=== PATIENT | male | born 1955 | race Caucasian/White ===

== ENCOUNTER 2021-08-15 12:21 | Inpatient (IN) ==
--- NOTE | 2021-08-15 13:14 | Emergency Department Note ---
History of Present Illness General Chief complaint: Syncope Stated complaint: SYNCOPE X 3 W/ FALLS Time Seen by Provider: 08/15/21 12:51 Source: patient Mode of arrival: EMS Limitations: no limitations History of Present Illness Provider complaint: syncope Onset (ago): day(s) Treatments prior to arrival: other This is a 65-year-old male presents emergency department following several syncopal events over the last several days. Patient states he has been doing a bowel prep since Tuesday for colonoscopy yesterday. He states he has passed out several times. He states he was given a liter of fluids following his colonoscopy because he felt weak and dizzy when he stood up. He had another episode of syncope today and present staff gave him another liter of IV fluids. He denies fevers or chills. Believes he did strike his head in the fall. He is unsure how long he was unconscious for. He states he can feel the symptoms coming on as he begins to feel lightheaded, warm, begins to have "fuzziness" of his vision and then feels nauseated and sweaty. Patient states he had episodes of passing out in the 's and was told that one day he may need a pacemaker. He denies any hx of heart problems. Pt seen during a time of high acuity and national emergency pandemic while wearing PPE. 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 Beliefs That Will Affect Care: None Current Living Situation: Other Current Living Situation Comment: detention Feels Safe at Home: Yes Review of Systems A total of 10 systems reviewed and were otherwise negative All systems reviewed & are unremarkable except as noted in HPI & below Physical Exam Vital Signs Vital Signs - 24 hr 08/15/21 12:21 08/15/21 12:31 08/15/21 13:00 Temperature 36.8 C Temperature Source Oral Pulse Rate 92 H 103 H Pulse Rate from SpO2 Sensor 105 H Respiratory Rate 12 20 Blood Pressure 180/105 H 175/119 H Blood Pressure Mean 130 137 Pulse Oximetry 97 98 97 Oxygen Delivery Method Room Air Room Air Sepsis Recent Fever Within 48 Hours No Sepsis New/Unexplained Change in Mental Status No Sepsis Action Taken by Nursing No Action Required 08/15/21 13:39 Temperature Temperature Source Pulse Rate 86 Pulse Rate from SpO2 Sensor 83 Respiratory Rate 16 Blood Pressure 147/84 H Blood Pressure Mean 105 Pulse Oximetry 98 Oxygen Delivery Method Sepsis Recent Fever Within 48 Hours Sepsis New/Unexplained Change in Mental Status Sepsis Action Taken by Nursing GENERAL: alert, well appearing, well nourished, no distress, non-toxic HEAD: contusion noted left side of face/head EYE EXAM: normal conjunctiva, PERRL and EOM's grossly intact, no nystagmus OROPHARYNX: no exudate, no erythema, lips, buccal mucosa, and tongue normal and mucous membranes are moist NECK: supple, no nuchal rigidity, no adenopathy, non-tender LUNGS: Clear to auscultation. Normal chest wall mechanics, no w/r/r HEART: no murmurs, S1 normal and S2 normal ABDOMEN: abdomen soft, non-tender, normo-active bowel sounds, no masses, no rebound or guarding. BACK: Back is symmetrical on inspection and there is no deformity, no midline tenderness, no CVA tenderness. SKIN: no rashes and no bruising UPPER EXTREMITIES: upper extremities are grossly normal. FROM, nml pulses b/l. LOWER EXTREMITIES: No pitting edema. FROM, nml pulses b/l. NEURO EXAM: Normal sensorium, cranial nerves II-XII grossly intact, normal speech, no gross weakness of arms, no gross weakness of legs. Gross sensation intact. Course Administered Medications Acetaminophen (Acetaminophen 325 Mg Tab) 650 mg PO Q4H PRN PRN Reason: Pain or Fever Stop: 09/14/21 17:54 Last Admin: 08/16/21 00:37 Dose: 650 mg Documented by: [id number] Apixaban (Apixaban 2.5 Mg Tab) 5 mg PO Q12H MCKAYLA Stop: 09/15/21 15:14 Last Admin: 08/16/21 16:22 Dose: 5 mg Documented by: [id number] Aspirin (Aspirin 81 Mg Ectab) 81 mg PO DAILY MCKAYLA Stop: 09/15/21 08:59 Last Admin: 08/16/21 07:52 Dose: 81 mg Documented by: [id number] Ceftriaxone Sodium 2,000 mg/ (Dextrose) 70 mls @ 100 mls/hr IV Q24H MCKAYLA; Protocol Stop: 08/25/21 17:59 Last Infusion: 08/16/21 18:35 Dose: 0 mls/hr Documented by: [id number] Admin: 08/16/21 17:31 Dose: 100 mls/hr Documented by: [id number] Infusion: 08/15/21 19:16 Dose: 0 mls/hr Documented by: [id number] Admin: 08/15/21 18:31 Dose: 100 mls/hr Documented by: [id number] Famotidine 20 mg/ Syringe 5 mls @ 2.5 mls/min IV BID MCKAYLA Stop: 09/15/21 08:59 Last Admin: 08/16/21 10:00 Dose: 2.5 mls/min Documented by: [id number] Lisinopril (Lisinopril 10 Mg Tab) 10 mg PO QAM MCKAYLA Stop: 09/15/21 08:59 Last Admin: 08/16/21 10:00 Dose: 10 mg Documented by: [id number] Pravastatin Sodium (Pravastatin Sod 40 Mg Tab) 80 mg PO HS [facility] Stop: 09/14/21 20:59 Last Admin: 08/15/21 20:59 Dose: 80 mg Documented by: [id number] Discontinued Medications Heparin Sodium (Porcine) (Heparin Sod 5,000 Unit/0.5 Ml Vial) 5,000 units SQ Q12 MCKAYLA Stop: 09/14/21 20:59 Last Admin: 08/16/21 07:50 Dose: 5,000 units Documented by: [id number] Admin: 08/15/21 20:59 Dose: 5,000 units Documented by: [id number] Sodium Chloride (Nss 1000ml) 1,000 mls @ 999 mls/hr IV .Q1H1M ONE Stop: 08/15/21 14:19 Last Infusion: 08/15/21 15:29 Dose: 0 mls/hr Documented by: [id number] Admin: 08/15/21 13:30 Dose: 999 mls/hr Documented by: [id number] Doxycycline Hyclate 100 mg/ (Dextrose) 110 mls @ 50 mls/hr IV NOW STA Stop: 08/15/21 17:15 Last Infusion: 08/15/21 17:41 Dose: 0 mls/hr Documented by: [id number] Admin: 08/15/21 15:29 Dose: 50 mls/hr Documented by: [id number] Lactated Ringer's (Lr) 1,000 mls @ 125 mls/hr IV .Q8H MCKAYLA Stop: 08/16/21 09:54 Last Infusion: 08/16/21 10:43 Dose: 0 mls/hr Documented by: [id number] Admin: 08/16/21 02:23 Dose: 125 mls/hr Documented by: [id number] Infusion: 08/16/21 02:23 Dose: 0 mls/hr Documented by: [id number] Admin: 08/15/21 18:30 Dose: 125 mls/hr Documented by: [id number] Ioversol (Optiray 320 125ml) 90 ml IV ONCE ONE Stop: 08/15/21 14:46 Last Admin: 08/15/21 14:45 Dose: 90 ml Documented by: [id number] Medical Decision Making Differential Diagnosis Differential diagnosis includes etiologies such as vasovagal event, infection, hypoglycemia, electrolyte abnormalities, cardiac sources, intracerebral event, toxicologic, neurologic, as well as others were entertained. Medical Records Attestation: I reviewed the patient's medical records. Home Medications Current Medication List: was personally reviewed by me Laboratory Data Attestation: I reviewed the patient's lab results. Result diagrams: 08/16/21 06:55 08/16/21 06:55 Lab Results 08/15/21 08/15/21 08/15/21 Range/Units 12:38 12:38 12:38 WBC 6.26 (4.8-10.8) K/uL RBC 4.64 L (4.7-6.1) M/uL Hgb 14.3 (14.0-18.0) g/dL Hct 42.5 (42-52) % MCV 91.6 (80-100) fL MCH 30.8 (25-34) pg MCHC 33.6 (32-36) g/dL RDW Std Deviation 45.2 (36.4-46.3) fL RDW Coeff of Kristyn 13.7 (11.5-14.5) % Plt Count 181 (130-400) K/uL MPV 10.8 H (7.4-10.4) fL Immature Gran % (Auto) 0.2 % Neut % (Auto) 74.3 % Lymph % (Auto) 16.9 % Kaufman % (Auto) 7.8 % Eos % (Auto) 0.6 % Baso % (Auto) 0.2 % Neut # (Auto) 4.65 (1.4-6.5) K/uL Lymph # (Auto) 1.06 L (1.2-3.4) K/uL Kaufman # (Auto) 0.49 (0.11-0.59) K/uL Eos # (Auto) 0.04 (0-0.5) K/uL Baso # (Auto) 0.01 (0-0.2) K/uL Immature Gran # (Auto) 0.01 (0.00-0.02) K/uL ESR (0-20) mm/hr D-Dimer 7800 H* (0-500) ug/L FEU Sodium 139 (136-145) mmol/L Potassium 3.7 (3.5-5.1) mmol/L Chloride 104 (98-107) mmol/L Carbon Dioxide 25 (21-32) mmol/L Anion Gap 10 (3-11) BUN 31 H (6-23) mg/dl Creatinine 1.49 H (0.6-1.4) mg/dl Est Cr Clr Drug Dosing 61.0 ml/min Est GFR ( Amer) 56.7 ml/min Est GFR (Non-Af Amer) 48.9 ml/min BUN/Creatinine Ratio 20.8 H (10-20) Glucose 98 (70-99(Fasting)) mg/dl Calcium 9.5 (8.5-10.1) mg/dl Magnesium 2.1 (1.7-2.4) mg/dl Total Bilirubin 0.5 (0.2-1.0) mg/dl AST 24 (13-39) U/L ALT 24 (7-52) U/L Alkaline Phosphatase 89 (34-104) U/L Troponin I High Sens 35.9 H (0-20) pg/ml C-Reactive Protein (0-0.5) mg/dl Total Protein 7.6 (6.0-8.3) gm/dl Albumin 4.5 (3.4-5.0) gm/dl Globulin 3.1 (2.5-4.0) gm/dl Albumin/Globulin Ratio 1.5 (0.9-2) Lipase 139 H (11-82) U/L TSH (0.300-4.500) uIu/ml Lyme Disease IgG Ab (Negative) Lyme Disease IgM Ab (Negative) 08/15/21 08/15/21 08/15/21 Range/Units 12:38 12:38 12:38 WBC (4.8-10.8) K/uL RBC (4.7-6.1) M/uL Hgb (14.0-18.0) g/dL Hct (42-52) % MCV (80-100) fL MCH (25-34) pg MCHC (32-36) g/dL RDW Std Deviation (36.4-46.3) fL RDW Coeff of Kristyn (11.5-14.5) % Plt Count (130-400) K/uL MPV (7.4-10.4) fL Immature Gran % (Auto) % Neut % (Auto) % Lymph % (Auto) % Kaufman % (Auto) % Eos % (Auto) % Baso % (Auto) % Neut # (Auto) (1.4-6.5) K/uL Lymph # (Auto) (1.2-3.4) K/uL Kaufman # (Auto) (0.11-0.59) K/uL Eos # (Auto) (0-0.5) K/uL Baso # (Auto) (0-0.2) K/uL Immature Gran # (Auto) (0.00-0.02) K/uL ESR (0-20) mm/hr D-Dimer (0-500) ug/L FEU Sodium (136-145) mmol/L Potassium (3.5-5.1) mmol/L Chloride (98-107) mmol/L Carbon Dioxide (21-32) mmol/L Anion Gap (3-11) BUN (6-23) mg/dl Creatinine (0.6-1.4) mg/dl Est Cr Clr Drug Dosing ml/min Est GFR ( Amer) ml/min Est GFR (Non-Af Amer) ml/min BUN/Creatinine Ratio (10-20) Glucose (70-99(Fasting)) mg/dl Calcium (8.5-10.1) mg/dl Magnesium (1.7-2.4) mg/dl Total Bilirubin (0.2-1.0) mg/dl AST (13-39) U/L ALT (7-52) U/L Alkaline Phosphatase (34-104) U/L Troponin I High Sens (0-20) pg/ml C-Reactive Protein < 0.50 (0-0.5) mg/dl Total Protein (6.0-8.3) gm/dl Albumin (3.4-5.0) gm/dl Globulin (2.5-4.0) gm/dl Albumin/Globulin Ratio (0.9-2) Lipase (11-82) U/L TSH 0.409 (0.300-4.500) uIu/ml Lyme Disease IgG Ab Negative (Negative) Lyme Disease IgM Ab Positive A (Negative) 08/15/21 Range/Units 12:38 WBC (4.8-10.8) K/uL RBC (4.7-6.1) M/uL Hgb (14.0-18.0) g/dL Hct (42-52) % MCV (80-100) fL MCH (25-34) pg MCHC (32-36) g/dL RDW Std Deviation (36.4-46.3) fL RDW Coeff of Kristyn (11.5-14.5) % Plt Count (130-400) K/uL MPV (7.4-10.4) fL Immature Gran % (Auto) % Neut % (Auto) % Lymph % (Auto) % Kaufman % (Auto) % Eos % (Auto) % Baso % (Auto) % Neut # (Auto) (1.4-6.5) K/uL Lymph # (Auto) (1.2-3.4) K/uL Kaufman # (Auto) (0.11-0.59) K/uL Eos # (Auto) (0-0.5) K/uL Baso # (Auto) (0-0.2) K/uL Immature Gran # (Auto) (0.00-0.02) K/uL ESR 29 H (0-20) mm/hr D-Dimer (0-500) ug/L FEU Sodium (136-145) mmol/L Potassium (3.5-5.1) mmol/L Chloride (98-107) mmol/L Carbon Dioxide (21-32) mmol/L Anion Gap (3-11) BUN (6-23) mg/dl Creatinine (0.6-1.4) mg/dl Est Cr Clr Drug Dosing ml/min Est GFR ( Amer) ml/min Est GFR (Non-Af Amer) ml/min BUN/Creatinine Ratio (10-20) Glucose (70-99(Fasting)) mg/dl Calcium (8.5-10.1) mg/dl Magnesium (1.7-2.4) mg/dl Total Bilirubin (0.2-1.0) mg/dl AST (13-39) U/L ALT (7-52) U/L Alkaline Phosphatase (34-104) U/L Troponin I High Sens (0-20) pg/ml C-Reactive Protein (0-0.5) mg/dl Total Protein (6.0-8.3) gm/dl Albumin (3.4-5.0) gm/dl Globulin (2.5-4.0) gm/dl Albumin/Globulin Ratio (0.9-2) Lipase (11-82) U/L TSH (0.300-4.500) uIu/ml Lyme Disease IgG Ab (Negative) Lyme Disease IgM Ab (Negative) Imaging Data Radiologist's Impression: Chest X-Ray 08/15/21 13:19 XR chest 1V portable CLINICAL HISTORY: syncope TECHNIQUE: Single frontal radiograph of the chest was obtained. Comparison: None available at the time of this dictation. FINDINGS: No lines and tubes are seen. The cardiomediastinal silhouette is normal. The lungs are clear. No evidence of pleural effusion or pneumothorax. IMPRESSION: No acute chest disease. ACT 112: Negative or not required by law. Electronically signed by: Reagan Iverson M.D. 08/15/2021 1:[address] 08/15/21 13:19 CT head/brain wo con CLINICAL HISTORY: trauma, syncope Technique: Contiguous axial CT images of the head were acquired from the base of the skull to the vertex without intravenous contrast administration. Images were viewed in brain, subdural and bone windows. Automated dose lowering techniques and/or adjustment according to patient size were utilized for this exam. Comparison: None available at the time of this dictation. Findings: The ventricles, basal cisterns, and cerebral sulci are normal. There is no acute intracranial hemorrhage or evidence of acute territorial infarction. Neither mass effect, shift of the midline structures, nor abnormal extra-axial fluid collections are shown. Imaged portions of the paranasal sinuses and mastoid air cells are clear. The orbits appear normal. There are no acute fractures of the calvaria or scalp swelling. Impression: No acute intracranial hemorrhage, no evidence of acute territorial infarction or other acute intracranial disease process. ACT 112: Negative or not required by law. Electronically signed by: Reagan Iverson M.D. 08/15/2021 2:12 PM Chest CTA 08/15/21 14:15 CT angio chest PE protocol CLINICAL HISTORY: PE TECHNIQUE: Multidetector row helical CT of the chest was performed with angiographic protocol. Coronal and sagittal reformations were obtained. Coronal and sagittal MIPS were obtained from the axial data set and were submitted for review. Automated dose lowering techniques and/or adjustment according to patient size were utilized for this exam. CT DOSE: 538.22 mGy.cm Comparison: Comparison is made to chest radiograph 08/15/2021 FINDINGS: Lungs and pleura: Normal. Heart and pericardium: There is cardiomegaly without evidence of pericardial effusion. Vessels: No evidence of pulmonary embolism. Mediastinum and lucila: Unremarkable. Chest wall and lower neck: Unremarkable. Abdomen: Unremarkable. Bones: Minimal degenerative changes are seen. IMPRESSION: No evidence of pulmonary embolism. ACT 112: Negative or not required by law. Electronically signed by: Reagan Iverson M.D. 08/15/2021 2:57 PM ECG Data Attestation: I personally reviewed and interpreted this ECG as follows: Indication: + syncope Rate (beats per minute): 99 Rhythm: + normal sinus ECG Intervals/blocks: + Left bundle branch block and + Normal QT ECG [place]: + Normal ECG ST segments: + Nonspecific ST abnormalities MDM Narrative An order was placed for continuous cardiac monitoring. The monitor shows a rate of _74_ with _normal sinus_ rhythm. This is a 65-year-old male who presents due to concern for recurrent episodes of syncope. Patient had been given IV fluids as initial thought by presumed primary was that he was volume depleted due to recent prep for colonoscopy which he underwent yesterday. Patient had recurrent syncope again today. Patient found to have a left bundle branch block on EKG, denies any prior history of abnormal EKG. Patient was also found to have elevated D-dimer and was sent for CT angiography of the chest which was reassuring. Patient with mildly elevated troponin. However during my evaluation no complaints of chest pain or shortness of breath. 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 Patient made hemodynamically stable throughout, no other ectopy or dysrhythmia noted on telemetry. I do not suspect additional occult traumatic injury related to syncope. Impression & Plan Syncope, LBBB (left bundle branch block), Lyme disease, CHI (closed head injury), Lyme carditis Discharge Plan Visit Data Chief Complaint: Syncope Stated Complaint: SYNCOPE X 3 W/ FALLS ED Provider: Sheree Waddell Discharge Problem: Syncope, LBBB (left bundle branch block), Lyme disease, CHI (closed head injury), Lyme carditis Patient Disposition: Admitted As Inpatient Discharge Instructions Interventions: ED Discharge Assessment Last Done: 08/15/21 17:04 Discharge Problem: Syncope Qualifiers: Syncope type: unspecified Qualified Code(s): R55 - Syncope and collapse CHI (closed head injury) Qualifiers: Encounter type: initial encounter Qualified Code(s): S09.90XA - Unspecified injury of head, initial encounter
[2021-08-15] MEDS ORDERED: SODIUM CHLORIDE 0.9% 1000ML 1,000 ML IV ONE (13:19)
[2021-08-15 13:50] LABS: Basophils # (auto) 0.01 K/uL (0-0.2); Basophils % (auto) 0.2 %; Eosinophils # (auto) 0.04 K/uL (0-0.5); Eosinophils % (auto) 0.6 %; Hematocrit (blood only) 42.5 % (42-52); Hemoglobin 14.3 g/dL (14.0-18.0); Immature Granulocytes # (auto) 0.01 K/uL (0.00-0.02); Immature Granulocytes % (auto) 0.2 %; Lymphocytes # (auto) 1.06 K/uL (1.2-3.4); Lymphocytes % (auto) 16.9 %; Mean Corpuscular Hemoglobin 30.8 pg (25-34); Mean Corpuscular Hgb Conc 33.6 g/dL (32-36); Mean Corpuscular Volume 91.6 fL (80-100); Mean Platelet Volume 10.8 fL (7.4-10.4); Monocytes # (auto) 0.49 K/uL (0.11-0.59); Monocytes % (auto) 7.8 %; Neutrophils # (auto) 4.65 K/uL (1.4-6.5); Neutrophils % (auto) 74.3 %; Platelet Count 181 K/uL (130-400); RDW Coefficient of Variation 13.7 % (11.5-14.5); RDW Standard Deviation 45.2 fL (36.4-46.3); Red Blood Count 4.64 M/uL (4.7-6.1); White Blood Count 6.26 K/uL (4.8-10.8)
--- NOTE | 2021-08-15 13:50 | XRay Report ---
XR chest 1V portable CLINICAL HISTORY: syncope TECHNIQUE: Single frontal radiograph of the chest was obtained. Comparison: None available at the time of this dictation. FINDINGS: No lines and tubes are seen. The cardiomediastinal silhouette is normal. The lungs are clear. No evid ence of pleural effusion or pneumothorax. IMPRESSION: No acute chest disease. ACT 112: Negative or not required by law. Electronically signed by: Reagan Iverson M.D. 08/15/2021 1:49 PM
[2021-08-15 13:56] LABS: Potassium 3.7 mmol/L (3.5-5.1); Troponin I High Sensitivity 35.9 pg/ml (0-20)
[2021-08-15 13:57] LABS: Albumin Globulin Ratio 1.5 (0.9-2); Albumin Level 4.5 gm/dl (3.4-5.0); BUN Creatinine Ratio 20.8 (10-20); Bilirubin,Total 0.5 mg/dl (0.2-1.0); Calcium 9.5 mg/dl (8.5-10.1); Est GFR (African American) 56.7 ml/min; Est GFR (Non-African American) 48.9 ml/min; Globulin 3.1 gm/dl (2.5-4.0); Magnesium 2.1 mg/dl (1.7-2.4); Total Protein 7.6 gm/dl (6.0-8.3)
[2021-08-15 14:11] LABS: D Dimer 7800 ug/L FEU (0-500)
--- NOTE | 2021-08-15 14:13 | CT Scan Report ---
CT head/brain wo con CLINICAL HISTORY: trauma, syncope Technique: Contiguous axial CT images of the head were acquired from the base of the skull to the susy nia without intravenous contrast administration. Images were viewed in brain, subdural and bone [facility]. Automated dose lowering techniques and/or adjustment according to patient size were utilized for this exam. Comparison: None available at the time of this dictation. Findings: The ventricles, basal cisterns, and cerebral sulci are normal. There is no acute intracranial hemorrh age or evidence of acute territorial infarction. Neither mass effect, shift of the midline structures , nor abnormal extra-axial fluid collections are shown. Imaged portions of the paranasal sinuses and mastoid air cells are clear. The orbits appear normal. There are no acute fractures of the calvaria or scalp swelling. Impression: No acute intracranial hemorrhage, no evidence of acute territorial infarction or other acute intracra nial disease process. ACT 112: Negative or not required by law. Electronically signed by: Reagan Iverson M.D. 08/15/2021 2:12 PM
[2021-08-15 14:30] LABS: Lyme Ab IgG w/WB Rflx Negative (Negative)
[2021-08-15 14:37] LABS: Lyme Ab IgM w/WB Rflx Positive (Negative)
[2021-08-15] MEDS ORDERED: OPTIRAY 320 125ml IV ONE (14:45)
--- NOTE | 2021-08-15 14:58 | CT Scan Report ---
CT angio chest PE protocol CLINICAL HISTORY: PE TECHNIQUE: Multidetector row helical CT of the chest was performed with angiographic protocol. Gutierrez l and sagittal reformations were obtained. Coronal and sagittal MIPS were obtained from the axial francois a set and were submitted for review. Automated dose lowering techniques and/or adjustment according to patient size were utilized for this exam. CT DOSE: 538.22 mGy.cm Comparison: Comparison is made to chest radiograph 08/15/2021 FINDINGS: Lungs and pleura: Normal. Heart and pericardium: There is cardiomegaly without evidence of pericardial effusion. Vessels: No evidence of pulmonary embolism. Mediastinum and lucila: Unremarkable. Chest wall and lower neck: Unremarkable. Abdomen: Unremarkable. Bones: Minimal degenerative changes are seen. IMPRESSION: No evidence of pulmonary embolism. ACT 112: Negative or not required by law. Electronically signed by: Reagan Iverson M.D. 08/15/2021 2:57 PM
[2021-08-15] MEDS ORDERED: DOXYCYCLINE HYCLATE 100 MG in DEXTROSE 5% 100 ML IV STA (15:04)
--- NOTE | 2021-08-15 16:03 | History & Physical Report ---
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 Syncope and Bradycardia, suspect secondary to AV block from Lyme Carditis -Lyme IgM positive, IgG bands pending -EKG taken during second syncope episode notable for HR 33BPM in addition to signs concerning for progression towards 3rd degree heart block -Treated with IV Doxycycline in the ED -Will transition to IV Ceftriaxone 2g QD until MI <300ms and no further AV blocks are noted while on monitored unit -After stability is ensured, transition to PO Doxycycline 100mg BID x14-21 days -If block returns or worsens, consider Cardiology consult for temporary PM JOHNATHAN -Mild elevation of creatinine 1.49 -Suspect secondary to recent bowel prep -Will hold Lisinopril at this time -LR 125ml/hr x2L -Recheck BMP in AM Elevated Troponin -High sensitivity troponin elevated at 35.9 on admission -New LBBB on EKG per our records, however, without hallmark signs of ACS including chest pain/pressure/SOB -HEART score 6 with 12-16.6% risk for adverse cardiac event -Suspect secondary to lyme carditis -Will trend q6h -Echo ordered Elevated D-Dimer -D-Dimer 7800 -Suspect secondary to lyme carditis -Chest CTA negative -With L calf pain will check doppler as well L calf Pain -In setting of elevated D-Dimer -Will check US doppler for clot HLD -Continue pravastatin -Continua ASA HTN -Hold Lisinopril as above Dispo: PCU for close cardiac monitoring and IV anbiotics, possible need for transcutaneous pacing FEN: Heart healthy diet DVT: Heparin sq Code: Full History of Present Illness Chief Complaint: Lyme Carditis Primary Care Provider: LINDA Lynne Patient is a 65 year old male with PMHx HLD and HTN that presents with history of falls x3 in the past 24 hours with EKG findings 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 Patient notes that yesterday morning while showering he had felt that he was "about to pass out" and had noticed "white and black flashes" in his vision before waking up on the floor. He notes he had been completing prep for a colonoscopy the night prior and was thought to be dehydrated. He was given 1L of IVF and underwent his colonoscopy without issues. He notes that this morning around 8AM he had again felt similar symptoms of wanting to pass out and ended up falling and again and hit the L side of his head. EKG at that time was notable for bradycardia of 33bpm in addition to AV dissociation concerning for 3rd degree AV block. He had similar symptoms again around 10AM this morning and again passed out while laying flat. 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 He notes that he feels well currently and denies any fever, nausea, vomiting, SOB, chest pain, chest pressure, abdominal pain, rash. He does note that in the past 24 hours he has had some chills in addition to some distal L calf pain which he though was due to dehydration from the colonoscopy prep. He does not recall any recent tick bites and notes that his primary time outdoors was spent 3 weeks ago in the small yard. Med Hx: HTN, HLD Surg Hx: Cholecysectomy Soc Hx: No alcohol or illicit drug use. Smoked 1-2.5PPD x45 years, quit 3 years ago Fam Hx: Father with planned coronary artery stent placements, Grandfather with CAD Allergies Allergy/AdvReac Type Severity Reaction Status Date / Time Penicillins Allergy Unknown Unverified 08/15/21 15:51 Home Medications Medication Instructions Recorded Confirmed Type aspirin 81 mg tablet,delayed 81 mg PO DAILY 08/15/21 08/15/21 History release lisinopril 10 mg tablet 10 mg PO DAILY 08/15/21 08/15/21 History pravastatin 80 mg tablet 80 mg PO HS 08/15/21 08/15/21 History Past Med/Surg History Social History Smoking Status: Former smoker Tobacco Type: Cigarettes Preferred Language: Dominican Feels Safe at Home: Yes Review of Systems Review of Systems: All systems reviewed & are unremarkable except as noted in Subjective Physical Exam Constitutional: well developed and well nourished; no acute distress Eyes: PERRL, conjunctivae normal, anicteric sclerae ENMT: external ear and nose normal, oropharynx normal Neck: trachea midline, no thyromegaly Respiratory: normal respiratory effort, lungs clear to auscultation Cardiovascular: Rate/Rhythm: regular rate and regular rhythm Heart Sounds: no murmur Extremities: + calf tenderness (L distal calf ); no edema Gastrointestinal (Abdomen): normal bowel sounds, soft, nontender, no hepatosplenomegaly Musculoskeletal: Head/Neck/Chest: + head abnormal to inspection (Bruising noted on the upper L lateral face and forehead ) Skin: no rashes, warm and dry Results & Data Results & Data ([facility]) Vital Signs (Past 12 Hours) Vital Signs Temp Pulse Resp BP Pulse Ox 08/15/21 15:00 82 16 134/77 96 08/15/21 14:27 76 18 135/81 96 08/15/21 13:39 86 16 147/84 H 98 08/15/21 13:00 103 H 20 175/119 H 97 08/15/21 12:31 98 08/15/21 12:21 36.8 C 92 H 12 180/105 H 97 Supervising Physician Co-Signing Physician Notes I personally examined the patient and verified all busch points of history and exam, discussed case, and agree with decision making with Dr Tanner. Multiple syncopal episodesunderstandably at first thought it was related to dehydration from bowel prep for colonoscopy, but even happened after fluid boluses and after colonoscopy was complete and fluid boluses were given then. Found to have complete heart block. Vitals noted, in general he is awake and alert pleasant no distress. HEENT normocephalic atraumatic mucous membranes moist. Breathing unlabored no accessory muscle use good effort. Skin shows no rashes no pallor or icterus. Neuro without focal deficits. [facility] shows complete heart block with bradycardia, other EKGs are more in line with sinus with a left bundle Complete heart block/syncopeLyme IgM positivehopefully this is simply Lyme carditis. The fact that he is bouncing back and forth between complete heart block and left bundle is a bit concerning, as is his astronomical pack yearstrue conduction disease is possible. For now, keep on monitor, can utilize transcutaneous pacing or transvenous if needed, but he appears quite stable now. Treat Lyme with ceftriaxoneif rhythms resolve and totally go away, particularly if IgM bands are consistent with screening testthen likely this will have been Lyme carditis all along. If rhythms continue to come and go with this regard to treatment, if bands are negative, etc.then more concerning for a primary conduction disease. Elevated creatinineunknown baseline, but assume JOHNATHAN related to dehydration from bowel prep and poor forward flow from complete heart block DVT prophylaxisheparin subcu Otherwise as above Resident Activity Tracking Resident Involvement: Resident Care Provided Care Provided: Adult Hospital Medicine
[2021-08-15 16:25] LABS: Influenza A virus by PCR Negative (Neg); Influenza B virus by PCR Negative (Neg); RSV by PCR Negative (Neg); SARS CoV2 RNA(COVID-19) InHosp NEGATIVE (Negative)
--- NOTE | 2021-08-15 17:05 | Ultrasound Report ---
US venous doppler LE BI CLINICAL HISTORY: elevated ddjazmine, L calf pain TECHNIQUE: Bilateral lower extremity real-time compression venous ultrasound with Color Doppler imagi ng. Utilizing real-time ultrasonic imaging multiple real time high-resolution ultrasonic images with compression and noncompression maneuvers of the deep venous system in addition to color doppler imagi ng were performed from the common femoral vein through the proximal calf veins. COMPARISON: None available at the time of this dictation. FINDINGS: No DVT is seen in the right. There is a thrombus seen in the mid to distal peroneal vein in the left lower extremity. Impression: Left peroneal deep venous thrombus. No additional thrombus is seen. ACT 112: Negative or not required by law. Electronically signed by: Reagan Iverson M.D. 08/15/2021 5:04 PM
--- NOTE | 2021-08-15 17:23 | Billing Data ---
Date of Service August 15, 2021 Coding Level of Care Code 82474 Initial Inpt Care Lvl 3
[2021-08-15] MEDS: LACTATED RINGER'S 1,000 ML IV SCH (18:30)
[2021-08-15] MEDS: cefTRIAXone SODIUM 2,000 MG in DEXTROSE 5% 50 ML IV SCH (18:31)
[2021-08-15] MEDS: HEPARIN SOD 5,000 UNIT/0.5 ML VIAL SQ SCH (20:59)
[2021-08-15] MEDS: PRAVASTATIN SOD 40 MG TAB PO SCH (20:59)
[2021-08-16] MEDS: ACETAMINOPHEN 325 MG TAB PO PRN ×2 (00:37→21:02)
[2021-08-16] MEDS: LACTATED RINGER'S 1,000 ML IV SCH (02:23)
[2021-08-16 07:20] LABS: Basophils # (auto) 0.02 K/uL (0-0.2); Basophils % (auto) 0.5 %; Eosinophils # (auto) 0.15 K/uL (0-0.5); Eosinophils % (auto) 3.5 %; Hematocrit (blood only) 38.6 % (42-52); Hemoglobin 12.7 g/dL (14.0-18.0); Immature Granulocytes # (auto) 0.01 K/uL (0.00-0.02); Immature Granulocytes % (auto) 0.2 %; Lymphocytes # (auto) 1.41 K/uL (1.2-3.4); Lymphocytes % (auto) 32.8 %; Mean Corpuscular Hemoglobin 30.4 pg (25-34); Mean Corpuscular Hgb Conc 32.9 g/dL (32-36); Mean Corpuscular Volume 92.3 fL (80-100); Mean Platelet Volume 10.4 fL (7.4-10.4); Monocytes # (auto) 0.43 K/uL (0.11-0.59); Neutrophils # (auto) 2.28 K/uL (1.4-6.5); Platelet Count 132 K/uL (130-400); RDW Coefficient of Variation 13.7 % (11.5-14.5); RDW Standard Deviation 46.1 fL (36.4-46.3); Red Blood Count 4.18 M/uL (4.7-6.1)
--- NOTE | 2021-08-16 07:35 | Hospitalist Progress Note ---
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 Syncope and Bradycardia, suspect secondary to AV block from Lyme Carditis vs Conduction delay -Lyme IgM positive, IgG bands pending -EKG taken during second syncope episode notable for HR 33BPM in addition to signs concerning for progression towards 3rd degree heart block -Treated with IV Doxycycline in the ED -Will transition to IV Ceftriaxone 2g QD until HI <300ms and no further AV blocks are noted while on monitored unit -After stability is ensured, transition to PO Doxycycline 100mg BID x14-21 days -If block returns or worsens, consider Cardiology consult for temporary PM -Patient would likely benefit from outpatient event monitor as well upon discharge DVT of the L distal Peroneal Vein -D-Dimer elevated 7800 on admission -Chest CTA negative -Doppler positive for DVT of L distal peroneal vein -Will start Eliquis 5mg BID JOHNATHAN -Mild elevation of creatinine 1.49 on admission -Suspect secondary to recent bowel prep -LR 125ml/hr x2L given -Resolved and at baseline Elevated Troponin -High sensitivity troponin elevated at 35.9 on admission -New LBBB on EKG per our records, however, without hallmark signs of ACS including chest pain/pressure/SOB -HEART score 6 with 12-16.6% risk for adverse cardiac event -Suspect secondary to lyme carditis -Will trend q6h -- Troponin level has since downtrended -Echo ordered -- EF 50-55% without regional wall motion abnormalities. Mild concentric left ventricular hypertrophy. HLD -Continue pravastatin -Continua ASA HTN -Restart Lisinopril Dispo: PCU for close cardiac monitoring and IV anbiotics, possible need for transcutaneous pacing FEN: Heart healthy diet DVT: Heparin sq Code: Full Admission and Anticipated Discharge Date Admission Date: August 15, 2021 Supervising Physician Co-Signing Physician Notes I personally examined the patient and verified all busch points of history and exam, discussed case, and agree with decision making with Dr Tanner. Feeling okay today. Relates that over the last few years he is actually now had 3 different discrete times where he has had syncopal episodes. Vitals noted, in general he is awake and alert pleasant no distress. HEENT normocephalic atraumatic mucous membranes moist. Breathing unlabored no accessory muscle use good effort. Skin shows no rashes no pallor or icterus. Neuro without focal deficits. Complete heart block/syncopeLyme IgM positivehopefully this is simply Lyme carditis. That said, he has been in sinus with a left bundle branch block since admission, and my experience with Lyme carditis has generally been that the conduction problems improve slowly rather than bouncing back and forthand he was back in sinus with a left bundle before he was even started on antibiotics to the best of my knowledge. This, combined with his previous episodes of otherwise unexplained syncope are fairly concerning that he has truly guid[place]le conduction system disease. In the acute setting it might be impossible to tease this apart from Lyme carditisparticularly given that we are in an endemic area and he has a positive IgMbut if his bands come back negative/nondiagnostic then it would be far more concerning that he truly just has conduction disease and the Lyme screen was a false positive. Even if the Lyme is positive, definitely we would be obligated to treat as though this is Lyme carditis, but the suspicion would remain that he has baseline conduction diseaseinto that and really should probably have more prolonged cardiac monitoring as an outpatient Elevated creatinineunknown baseline, but assume JOHNATHAN related to dehydration from bowel prep and poor forward flow from complete heart blockimproved DVT prophylaxisheparin subcu Otherwise as above Subjective Patient evaluated at the bedside this AM. Notes that his only concern is that occasionally food will feel "stuck" in his chest whenever he goes to swallow. Denies history of GERD or reflux symptoms otherwise. Denies fever, chills, SOB, chest pain. Review of Systems Review of Systems: All systems reviewed & are unremarkable except as noted in Subjective Physical Exam Constitutional: well developed and well nourished; no acute distress Eyes: PERRL, conjunctivae normal, anicteric sclerae ENMT: external ear and nose normal, oropharynx normal Neck: trachea midline, no thyromegaly Respiratory: normal respiratory effort, lungs clear to auscultation Cardiovascular: Rate/Rhythm: regular rate and regular rhythm Heart Sounds: no murmur Extremities: + calf tenderness (L distal calf ); no edema Gastrointestinal (Abdomen): normal bowel sounds, soft, nontender, no hepatosplenomegaly Musculoskeletal: Head/Neck/Chest: + head abnormal to inspection (Bruising noted on the upper L lateral face and forehead ) Skin: no rashes, warm and dry Results & Data Results & Data ([facility]) Vital Signs (Past 12 Hours) Vital Signs Temp Pulse Resp BP Pulse Ox 08/16/21 03:30 36.6 C 74 18 149/86 H 96 08/15/21 23:20 36.7 C 72 18 135/85 95 Resident Activity Tracking Resident Involvement: Resident Care Provided Care Provided: Adult Hospital Medicine
[2021-08-16 07:45] LABS: BUN Creatinine Ratio 21.6 (10-20); Creatinine Clr Calc Pharmacy 102.2 ml/min; Est GFR (African American) 105.2 ml/min; Est GFR (Non-African American) 90.8 ml/min; Potassium 4.2 mmol/L (3.5-5.1)
[2021-08-16] MEDS: HEPARIN SOD 5,000 UNIT/0.5 ML VIAL SQ SCH (07:50)
[2021-08-16] MEDS: ASPIRIN 81 MG ECTAB PO SCH (07:52)
[2021-08-16] MEDS ORDERED: lisinopril 10 MG TAB PO SCH ×2 (09:00)
[2021-08-16] MEDS: FAMOTIDINE 20 MG in SYRINGE 3 ML IV SCH ×2 (10:00→20:57)
[2021-08-16] MEDS: lisinopril 10 MG TAB PO SCH (10:00)
--- NOTE | 2021-08-16 12:12 | XCELERA ---
[id number] \\[id number]
--- NOTE | 2021-08-16 12:20 | Electrocardiogram Report ---
Test Reason : Blood Pressure : / mmHG Vent. Rate : 099 BPM Atrial Rate : 099 BPM P-R Int : 170 ms QRS Dur : 140 ms QT Int : 372 ms P-R-T Axes : 064 -11 161 degrees QTc Int : 477 ms Normal sinus rhythm Left bundle branch block Abnormal ECG No previous ECGs available Confirmed by Christian Damon ([id number]) on 08/16/2021 12:19:37 PM Referred By: Guera SCI Confirmed By:Darien Damon
--- NOTE | 2021-08-16 15:23 | Billing Data ---
Date of Service August 16, 2021 Coding Level of Care Code 14583 Subseq Hosp Care Lvl 3
[2021-08-16] MEDS: APIXABAN 2.5 MG TAB PO SCH (16:22)
[2021-08-16] MEDS: cefTRIAXone SODIUM 2,000 MG in DEXTROSE 5% 50 ML IV SCH (17:31)
[2021-08-16] MEDS: PRAVASTATIN SOD 40 MG TAB PO SCH (20:57)
[2021-08-16] MEDS ORDERED: APIXABAN 2.5 MG TAB PO SCH (21:00)
[2021-08-17] MEDS: APIXABAN 2.5 MG TAB PO SCH (03:55)
[2021-08-17] MEDS: ACETAMINOPHEN 325 MG TAB PO PRN ×3 (06:09→21:39)
[2021-08-17] MEDS ORDERED: APIXABAN 5 MG TABLET PO STA (06:52)
[2021-08-17 08:02] LABS: Basophils # (auto) 0.02 K/uL (0-0.2); Basophils % (auto) 0.4 %; Eosinophils # (auto) 0.15 K/uL (0-0.5); Eosinophils % (auto) 3.4 %; Hematocrit (blood only) 37.8 % (42-52); Hemoglobin 12.6 g/dL (14.0-18.0); Immature Granulocytes # (auto) 0.01 K/uL (0.00-0.02); Immature Granulocytes % (auto) 0.2 %; Lymphocytes # (auto) 1.22 K/uL (1.2-3.4); Lymphocytes % (auto) 27.3 %; Mean Corpuscular Hemoglobin 31.3 pg (25-34); Mean Corpuscular Hgb Conc 33.3 g/dL (32-36); Mean Corpuscular Volume 93.8 fL (80-100); Mean Platelet Volume 10.6 fL (7.4-10.4); Monocytes # (auto) 0.37 K/uL (0.11-0.59); Monocytes % (auto) 8.3 %; Neutrophils % (auto) 60.4 %; Platelet Count 139 K/uL (130-400); RDW Coefficient of Variation 13.3 % (11.5-14.5); Red Blood Count 4.03 M/uL (4.7-6.1); White Blood Count 4.47 K/uL (4.8-10.8)
[2021-08-17 08:20] LABS: BUN Creatinine Ratio 17.9 (10-20); Calcium 9.1 mg/dl (8.5-10.1); Creatinine Clr Calc Pharmacy 96.4 ml/min; Est GFR (African American) 97.7 ml/min; Est GFR (Non-African American) 84.3 ml/min; Magnesium 1.9 mg/dl (1.7-2.4); Potassium 4.1 mmol/L (3.5-5.1)
--- NOTE | 2021-08-17 08:39 | Hospitalist Progress Note ---
Date of Service August 17, 2021 Assessment & Plan (1) Lyme carditis: Plan: Patient is a 65 year old male with PMHx HLD and HTN that presents with history of falls x3 in the past 24 hours with EKG findings 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 Syncope and Bradycardia, suspect secondary to AV block from Lyme Carditis vs Conduction delay -Lyme IgM positive, IgG bands pending -Has been outside twice this year ([place] [facility] not near any foliage, very low exposure to ticks. No erythema migrans, arthralgia is baseline, no bells palsy -EKG taken during second syncope episode notable for HR 33BPM in addition to signs concerning for progression towards 3rd degree heart block -Treated with IV Doxycycline in the ED -Transitioned to IV Ceftriaxone 2g QD on 08/15 -After stability is ensured, transition to PO Doxycycline 100mg BID x14-21 days -Continue treatment for lyme carditis even with unlikely exposure unless confirmatory Lyme testing negative -Overnight, 1 brief episode of sinus HR of 40s, 1 nonsustained run of SVT (8-10 beats) per tele -Patient states he had 3-4 episodes of unexplained syncope with prodrome in the last 20 years -Also states during dental procedure in the s, the anesthesiologist told him he had a heart conduction issue during EKG monitoring -Appreciate Cardiology consult: Patient likely has high vagal tone, possible lyme carditis, with left bundle branch block -Continued telemetry monitoring for any additional episodes of high-degree heart block -Complete course of antibiotics for Lyme disease -Lexiscan perfusion study electively, inpatient versus outpatient DVT of the L distal Peroneal Vein -D-Dimer elevated 7800 on admission -Chest CTA negative -Doppler positive for DVT of L distal peroneal vein -Started on Eliquis 10mg BID on 08/17 JOHNATHAN, Resolved -Mild elevation of creatinine 1.49 on admission, 0.95 on 08/17 -Suspect secondary to recent bowel prep, prerenal nature, resolved with IV fluids -LR 125ml/hr x2L given, no further IV fluids required Elevated Troponin; LBBB -High sensitivity troponin elevated at 35.9 on admission, downtrending -New LBBB on EKG per our records, however, without hallmark signs of ACS including chest pain/pressure/SOB -HEART score 6 with 12-16.6% risk for adverse cardiac event -Suspect secondary to lyme carditis -Echo ordered -- EF 50-55% without regional wall motion abnormalities. Mild concentric left ventricular hypertrophy. -Lexiscan, see cardiology recommendation above HLD -Continue pravastatin -Continua ASA HTN -Restart Lisinopril Dispo: PCU for close cardiac monitoring and IV antibiotics, tentative dispo planned for 08/18 FEN: Heart healthy diet DVT: Apixaban 10mg BID Code: Full Admission and Anticipated Discharge Date Admission Date: August 15, 2021 Supervising Physician Co-Signing Physician Notes Attending attestation Pt seen and examined in concert with [facility]. Dr. Mcgraw. In agreement with the documented findings as noted in the resident documentation with any exceptions or additions as noted here. No acute complaints at present, overall continued improvement and no recurrence of presenting symptoms. On examination, S1/S2 nl RRR no MCG. CTAB. Abd NT/ND BS+ve. Bradycardia with intermittent syncope - Lyme bands pending. Continue abx therapy. Cardiology consult appreciated. DVT - initiate eliquis today Else see resident documentation as noted. Subjective Patient states he still has a headache this morning which he has had since he started his prep for the colonoscopy last week. It feels worse when moving his head, feels like a tension band around his head and is relieved by tylenol. He also states that he felt "weird" again this morning after breakfast with transient visual symptoms, similar to his syncopal prodrome, but did not lose consciousness. Otherwise today, no chest pain, SOB, syncope, or persistent visual changes. Review of Systems Constitutional: no fever or chills Eyes: no visual disturbances currently Respiratory: no cough or SOB Cardiovascular: Additional Comments: no chest pain or palpitations Gastrointestinal: no abdominal pain, constipation or diarrhea Genitourinary: no dysuria Neurologic: + headache, tension band distribution, pain on the left side worse when moving head side to side. Relieved by tylenol Physical Exam Constitutional: resting comfortably in bed, no acute distress, 2 guards in room, with leg shackle Respiratory: normal respiratory effort, clear to auscultation bilaterally Cardiovascular: RRR, no lower extremity edema, strong LE posterior tibial pulses bilaterally Gastrointestinal (Abdomen): soft, nontender, no masses Skin: no rashes appreciated Neurologic: alert and oriented x3, no unilateral facial droop Results & Data Results & Data ([facility]) Vital Signs (Past 12 Hours) Vital Signs Temp Pulse Pulse Resp BP Pulse Ox 08/17/21 07:10 36.6 C 63 18 155/88 H 95 08/17/21 03:58 36.5 C 73 18 139/91 95 08/17/21 00:05 66 08/16/21 22:56 36.6 C 64 18 133/78 96
[2021-08-17] MEDS: lisinopril 10 MG TAB PO SCH (10:09)
[2021-08-17] MEDS: ASPIRIN 81 MG ECTAB PO SCH (10:09)
[2021-08-17] MEDS: FAMOTIDINE 20 MG in SYRINGE 3 ML IV SCH (10:15)
--- NOTE | 2021-08-17 11:43 | Electrocardiogram Report ---
Test Reason : Blood Pressure : / mmHG Vent. Rate : 065 BPM Atrial Rate : 065 BPM P-R Int : 182 ms QRS Dur : 140 ms QT Int : 410 ms P-R-T Axes : 070 -04 173 degrees QTc Int : 426 ms Normal sinus rhythm Left bundle branch block Abnormal ECG When compared with ECG of 16-AUG-2021 06:21, (unconfirmed) No significant change was found Confirmed by Christian Damon ([id number]) on 08/17/2021 11:42:28 AM Referred By: Guera SCI Confirmed By:Darien Damon
--- NOTE | 2021-08-17 11:49 | Electrocardiogram Report ---
Test Reason : Blood Pressure : / mmHG Vent. Rate : 068 BPM Atrial Rate : 068 BPM P-R Int : 182 ms QRS Dur : 148 ms QT Int : 424 ms P-R-T Axes : 056 -05 180 degrees QTc Int : 450 ms Normal sinus rhythm Possible Left atrial enlargement Left bundle branch block Abnormal ECG When compared with ECG of 15-AUG-2021 12:29, (unconfirmed) T wave amplitude has decreased in Anterior leads Confirmed by Christian Damon ([id number]) on 08/17/2021 11:48:49 AM Referred By: Guera SCI Confirmed By:Darien Damon
--- NOTE | 2021-08-17 14:10 | Cardiology Consultation ---
Date of Consultation August 17, 2021 Assessment & Plan (1) LBBB (left bundle branch block): (2) Syncope: 1. Syncope: The symptoms he experienced surrounding his episode of syncope certainly sound consistent with high vagal tone. He does have some underlying conduction and there was documented high-degree AV block. This is complicated by his positive Lyme IgM band. It is curious that all of his symptoms surrounded his colonoscopy in all included some gastrointestinal disturbance. Again, this would be consistent with transient high vagal tone which could produce the EKG abnormalities documented. S scenario more consistent with baseline conduction disease would be simple drop attacks without any prodrome or residual symptoms afterwards. 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 However, he does have a mildly elevated ESR and mildly elevated cardiac biomarkers all consistent with an element of carditis. He has been treated with antibiotics and we have not seen any evidence of high-degree AV block during this admission. 3. Left bundle-branch block: This is generally associated with some form of cardiac disease. This also implies poor function of the conduction system. It is certainly possible that degeneration of the conduction system resulted in his syncope. However, at this point I think completing his treatment for Lyme and continuing to monitor for any additional symptoms or evidence of heart block is the best strategy. Most patients with a left bundle branch block at some point undergo an evaluation for ischemic heart disease. This is generally a perfusion study. This could be performed as an outpatient. Recommendations Continued telemetry monitoring for any additional episodes of high-degree heart block Complete course of antibiotics for Lyme disease Lexiscan perfusion study electively, inpatient versus outpatient History of Present Illness Reason for Consultation: Syncope, heart block Requesting Physician: Yaa Attending Physician: Timothy Tijerina MD History of Present Illness The patient is a 65-year-old inmate who was admitted to the hospital after an episode of syncope. At the time of his evaluation at the facility he was noted to have evidence high-degree heart block. It seems that the patient was preparing for a colonoscopy last Tuesday. This involved the usual colon prep. He admits to not feeling well leading up to his colonoscopy and in fact the morning of his colonoscopy he was taking a shower and began to feel quite dizzy and lightheaded. He also needed to have a bowel movement quite quickly and exited the shower to sit on the toilet. He VAC waited his bowels became signif icantly nauseated in the apparently woke up on the floor with a small injury to his left forehead. According to the patient he underwent an uneventful colonoscopy. Subsequently he had 2 additional episodes of dizziness and lightheadedness accompanied with similar gastrointestinal symptoms. He was described by bystanders is being somewhat pale. He was sent to the hospital for evaluation and admission. His initial screening for Lyme disease was positive for IgM bands and he was placed on appropriate antibiotics. The patient does report some cardiac evaluation in the past. He claims to have undergone stress testing and may have been told that he had an element of conduction disease around that time. He does not recall having been told that he had a heart attack or significant heart artery blockages. He has passed out twice quite remotely. These events occurred several years ago. In both circumstances he had some warning and mild gastrointestinal symptoms leading up to his events. He claims to be active at the facility. 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 He generally does not have symptoms associated with exertion he did not endorse symptoms of chest pain or limiting dyspnea. He has not noticed any palpitations. Allergies Allergy/AdvReac Type Severity Reaction Status Date / Time Penicillins Allergy Unknown Unverified 08/15/21 15:51 Home Medications Medication Instructions Recorded Confirmed Type aspirin 81 mg tablet,delayed 81 mg PO DAILY 08/15/21 08/15/21 History release lisinopril 10 mg tablet 10 mg PO DAILY 08/15/21 08/15/21 History pravastatin 80 mg tablet 80 mg PO HS 08/15/21 08/15/21 History Patient History Social History Smoking Status: Former smoker Tobacco Type: Cigarettes Preferred Language: Ecuadorean Communication Ability: Effective Coding Compliance Manager Required: No Beliefs That Will Affect Care: None Current Living Situation: Other Current Living Situation Comment: half-way Feels Safe at Home: Yes Review of Systems Review of Systems: Per HPI Physical Exam Physical Exam: The patient is alert and oriented. Mood and affect appeared normal. He answered all questions appropriately. HEENT: Pupils are equal and reactive to light and accommodation. Extraocular movements are intact. The sclerae are anicteric. Neuro: Cranial nerves intact Lungs: Clear to auscultation bilaterally. He has good air movement without use of accessory muscles. No rales wheezes or rhonchi. Cardiac: Heart demonstrates a regular rate and rhythm. Normal S1 and S2. No murmurs on examination. Pulses: The patient has palpable radial pulses bilaterally that are equal in intensity Extremities: There was no evidence of hypoperfusion. There is no cyanosis or clubbing. There is no edema. Skin: I did not appreciate any rashes on examination today. Results & Data ([facility]) Vital Signs (Past 12 Hours) Vital Signs Temp Pulse Pulse Resp BP Pulse Ox 08/17/21 12:11 72 08/17/21 11:08 36.7 C 67 18 143/83 H 97 08/17/21 07:10 36.6 C 63 18 155/88 H 95 08/17/21 03:58 36.5 C 73 18 139/91 95 Laboratory Results Abnormal Lab Results 08/17/21 08/17/21 07:29 07:29 WBC 4.47 L RBC 4.03 L Hgb 12.6 L Hct 37.8 L MCV 93.8 MCH 31.3 MCHC 33.3 RDW Std Deviation 46.0 RDW Coeff of Kristyn 13.3 Plt Count 139 MPV 10.6 H Immature Gran % (Auto) 0.2 Neut % (Auto) 60.4 Lymph % (Auto) 27.3 Sargent % (Auto) 8.3 Eos % (Auto) 3.4 Baso % (Auto) 0.4 Neut # (Auto) 2.70 Lymph # (Auto) 1.22 Sargent # (Auto) 0.37 Eos # (Auto) 0.15 Baso # (Auto) 0.02 Immature Gran # (Auto) 0.01 Sodium 142 Potassium 4.1 Chloride 109 H Carbon Dioxide 27 Anion Gap 6 BUN 17 Creatinine 0.95 Est Cr Clr Drug Dosing 96.4 Est GFR ( Amer) 97.7 Est GFR (Non-Af Amer) 84.3 BUN/Creatinine Ratio 17.9 Glucose 103 H Calcium 9.1 Magnesium 1.9 Diagnostic Findings Echocardiogram performed 08/16/2021: Ejection fraction 50-55%. Mild LVH. Stage I diastolic dysfunction. CTA performed 08/15/2021: No pulmonary embolus. No other acute findings PG Care Time/CCT Total # of Minutes Spent Total Time Spent with Patient: Total time spent is greater than 50% in coordination of care (as documented) at patient's floor/unit and/or counseling patient: Coding Level of Care Code 78600 Inpt Consult Level 4 Diagnoses LBBB (left bundle branch block) I44.7 Syncope R55 Syncope type: unspecified (1) Syncope Syncope type: unspecified Qualified Code(s): R55 - Syncope and collapse
[2021-08-17] MEDS: cefTRIAXone SODIUM 2,000 MG in DEXTROSE 5% 50 ML IV SCH (17:29)
[2021-08-17] MEDS: APIXABAN 5 MG TABLET PO SCH (21:37)
[2021-08-17] MEDS: FAMOTIDINE 20 MG TAB PO SCH (21:38)
[2021-08-17] MEDS: PRAVASTATIN SOD 40 MG TAB PO SCH (21:38)
[2021-08-18 07:02] LABS: Basophils # (auto) 0.02 K/uL (0-0.2); Basophils % (auto) 0.5 %; Eosinophils # (auto) 0.15 K/uL (0-0.5); Eosinophils % (auto) 3.4 %; Hematocrit (blood only) 39.2 % (42-52); Hemoglobin 13.1 g/dL (14.0-18.0); Immature Granulocytes # (auto) 0.01 K/uL (0.00-0.02); Immature Granulocytes % (auto) 0.2 %; Lymphocytes # (auto) 1.58 K/uL (1.2-3.4); Lymphocytes % (auto) 36.3 %; Mean Corpuscular Hemoglobin 31.3 pg (25-34); Mean Corpuscular Hgb Conc 33.4 g/dL (32-36); Mean Corpuscular Volume 93.8 fL (80-100); Mean Platelet Volume 10.8 fL (7.4-10.4); Monocytes # (auto) 0.37 K/uL (0.11-0.59); Monocytes % (auto) 8.5 %; Neutrophils # (auto) 2.22 K/uL (1.4-6.5); Neutrophils % (auto) 51.1 %; Platelet Count 151 K/uL (130-400); RDW Coefficient of Variation 13.2 % (11.5-14.5); RDW Standard Deviation 45.7 fL (36.4-46.3); Red Blood Count 4.18 M/uL (4.7-6.1); White Blood Count 4.35 K/uL (4.8-10.8)
[2021-08-18 07:30] LABS: BUN Creatinine Ratio 20.2 (10-20); Calcium 9.3 mg/dl (8.5-10.1); Creatinine Clr Calc Pharmacy 91.3 ml/min; Est GFR (African American) 92.9 ml/min; Est GFR (Non-African American) 80.2 ml/min; Potassium 4.2 mmol/L (3.5-5.1)
--- NOTE | 2021-08-18 08:01 | Discharge Summary ---
Date of Service August 18, 2021 Admission HPI Per Admitting Provider Patient is a 65 year old male with PMHx HLD and HTN that presents with history of falls x3 in the past 24 hours with EKG findings 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 Patient notes that yesterday morning while showering he had felt that he was "about to pass out" and had noticed "white and black flashes" in his vision before waking up on the floor. He notes he had been completing prep for a colonoscopy the night prior and was thought to be dehydrated. He was given 1L of IVF and underwent his colonoscopy without issues. He notes that this morning around 8AM he had again felt similar symptoms of wa nting to pass out and ended up falling and again and hit the L side of his head. EKG at that time was notable for bradycardia of 33bpm in addition to AV dissociation concerning for 3rd degree AV block. He had similar symptoms again around 10AM this morning and again passed out while laying flat. 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 He notes that he feels well currently and denies any fever, nausea, vomiting, SOB, chest pain, chest pressure, abdominal pain, rash. He does note that in the past 24 hours he has had some chills in addition to some distal L calf pain which he though was due to dehydration from the colonoscopy prep. He does not recall any recent tick bites and notes that his primary time outdoors was spent 3 weeks ago in the small yard. Med Hx: HTN, HLD Surg Hx: Cholecysectomy Soc Hx: No alcohol or illicit drug use. Smoked 1-2.5PPD x45 years, quit 3 years ago Fam Hx: Father with planned coronary artery stent placements, Grandfather with CAD Admission Exam Per Admitting Provider Constitutional: well developed and well nourished; no acute distress Eyes: PERRL, conjunctivae normal, anicteric sclerae ENMT: external ear and nose normal, oropharynx normal Neck: trachea midline, no thyromegaly Respiratory: normal respiratory effort, lungs clear to auscultation Cardiovascular: Rate/Rhythm: regular rate and regular rhythm Heart Sounds: no murmur Extremities: + calf tenderness (L distal calf ); no edema Gastrointestinal (Abdomen): normal bowel sounds, soft, nontender, no hepatosplenomegaly Musculoskeletal: Head/Neck/Chest: + head abnormal to inspection (Bruising noted on the upper L lateral face and forehead ) Skin: no rashes, warm and dry Principal Diagnosis Symptomatic Bradycardia Deep Venous Thrombosis of Left Lower Extremity Lyme Disease Discharge Exam General: A&Ox3. NAD. Cooperative. HEENT: Atraumatic, normocephalic. Pulm: CTAB A&P. -wheezes, -rales, -rhonchi. Symmetrical chest rise. No increase work of breathing. No respiratory distress. Cardiac: RRR, -mrg. Radial pulses intact and symmetrical. No LE edema. Abdominal: soft, non-tender, non-distended, BS x 4 Skin: warm, dry, no rash. Mild tenderness to palpation of proximal left ankle. 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 Was also found to have DVT of left lower extremity. Symptomatic Bradycardia, suspect secondary to AV block from Lyme Carditis vs Conduction delay Patient has had intermittent near-syncope/syncope over the last 20-30 years that is suspicious for symptomatic bradycardia due to chronic conduction delay. However he had recent several episodes of syncope in context of positive Lyme IgM that makes Lyme carditis a possibility. Additionally he recently underwent bowel prep with resultant dehydration and may have had vagus nerve hypersensiti vity, making vasovagal syncope a possibility. - Lyme IgM positive and IgG negative - Western blot pending - EKG taken during second syncopal episode with bradycardia in 30s with complete heart block; quickly reverted to sinus bradycardia and has remained this way throughout hospitalization (rates largely 50s-60s) - Treated with IV Doxycycline in the ED and then immediately started on CTX 2g IV daily during hospitalization - Will transition to Doxycyline 100mg PO BID today, for 10 more days of treatment (total 14 days) - Could extend Doxy course to 21 days if remains symptomatic - Cardiology consulted - did not recommend additional inpatient testing or treatments - Patient will need close f/u with Cardiology as outpatient for further work- up of symptomatic bradycardia DVT of the L distal Peroneal Vein Doppler positive for DVT of L distal peroneal vein. Chest CTA negative, patient without hypoxia or hemodynamic instability. Unclear if this is unprovoked; no previous history of clots and no known family h/o clotting disorders. -Started Eliquis 5mg BID - continue for 3 months on discharge - repeat imaging and further management per PCP - would consider hypercoagulability testing in the future Elevated Troponin; Left Bundle Branch Block High sensitivity troponin peaked at 38 on admission. No chest pain but EKG showing no LBBB per our records. Suspect demand ischemia in setting of bradycardia/?lyme carditis. - TTE with EF 50-55% without regional wall motion abnormalities. Mild concentric left ventricular hypertrophy. - Cardiology consulted as stated above - recommend consideration of outpatient Lexiscan perfusion testing given LBBB - defer to PCP regarding timing JOHNATAHN, resolved Mild elevation of creatinine 1.49 on admission, quickly resolved to 2L IVFs. Suspect pre-renal injury due to recent bowel prep as well as bradycardia. HLD -Continue pravastatin -Continua ASA HTN -Continue Lisinopril Total Time Total Time Spent Total Time Spent (In Minutes): 45 minutes Discharge Plan Discharge Items Patient Disposition: [facility] Reason For Visit: LYME CARDITIS Discharge Diagnosis: Symptomatic Bradycardia Deep Venous Thrombosis of Left Lower Extremity Lyme Disease Activity: Per Instructions section Non-emergency contact: Primary Care Provider and Newspaper Press Operator Apprentice Call non-emergency contact if: you have any medication questions, your symptoms worsen and your temperature is above 101 Follow-up/Referrals: Guera MCKEON [Primary Care Provider] - Diet: Regular Addtl Attending Provider Instructions: Patient is a 65 year old male with PMHx HLD and HTN who was admitted to [facility] from 08/15 to 08/18 for symptomatic bradycardia and complete heart block, 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 Was also found to have DVT of left lower extremity. Symptomatic Bradycardia, suspect secondary to AV block from Lyme Carditis vs Conduction delay Patient has had intermittent near-syncope/syncope over the last 20-30 years that is suspicious for symptomatic bradycardia due to chronic conduction delay. However he had recent several episodes of syncope in context of positive Lyme I gM that makes Lyme carditis a possibility. Additionally he recently underwent bowel prep with resultant dehydration and may have had vagus nerve hypersensitivity, making vasovagal syncope a possibility. - Lyme IgM positive and IgG negative - Western blot pending - EKG taken during second syncopal episode with bradycardia in 30s with complete heart block; quickly reverted to sinus bradycardia and has remained this way throughout hospitalization (rates largely 50s-60s) - Treated with IV Doxycycline in the ED and then immediately started on CTX 2g IV daily during hospitalization - Will transition to Doxycyline 100mg PO BID today, for 10 more days of treatment (total 14 days) - Could extend Doxy course to 21 days if patient remains symptomatic - Cardiology consulted - did not recommend additional inpatient testing or treatments - Patient will need close f/u with Cardiology as outpatient for further work- up of symptomatic bradycardia DVT of the L distal Peroneal Vein Doppler positive for DVT of L distal peroneal vein. Chest CTA negative, patient without hypoxia or hemodynamic instability. Unclear if this is unprovoked; no previous history of clots and no known family h/o clotting disorders. -Started Eliquis 5mg BID - continue for 3 months on discharge - repeat imaging and further management per PCP - would consider hypercoagulability testing in the future Elevated Troponin; Left Bundle Branch Block High sensitivity troponin peaked at 38 on admission. No chest pain but EKG showing no LBBB per our records. Suspect demand ischemia in setting of bradycardia/?lyme carditis. - TTE with EF 50-55% without regional wall motion abnormalities. Mild concentric left ventricular hypertrophy. - Cardiology consulted as stated above - recommend consideration of outpatient Lexiscan perfusion testing given LBBB - defer to PCP regarding timing JOHNATHAN, resolved Mild elevation of creatinine 1.49 on admission, quickly resolved to 2L IVFs. Suspect pre-renal injury due to recent bowel prep as well as bradycardia. HLD -Continue pravastatin -Continua ASA HTN -Continue Lisinopril Pending Studies at Discharge: Yes Studies:: Lyme western blot is pending Stand-Alone Forms: My [facility] Skilled Items Patient informed of condition?: Yes Discharge Level of Care: Other Communicable Disease: No Discharge Prognosis: Stable Lines: None Urinary Catheter: No Medications and DC Order Prescriptions: Continued aspirin 81 mg Tablet,Delayed Release (Dr/Ec) 81 mg PO DAILY RF: 0 lisinopril 10 mg Tablet 10 mg PO DAILY RF: 0 pravastatin 80 mg Tablet 80 mg PO HS RF: 0 Discharge Orders: Discharge Order (Routine); Ordered 08/18/21 Ordered By: Jevon Mon Admission Data Admit Date/Time: 08/15/21 16:10 Attending Provider: Timothy Tijerina Admit Provider: Ramiro Tanner Primary Care Provider: Guera MCKEON Other Providers: Pj Rendon ; Christian Damon Other Interventions: Discharge Summary Assessment (RN) Last Done: 08/18/21 12:13 Supervising Physician Co-Signing Physician Notes Attending attestation Pt seen and examined in concert with [facility]. Dr. Mcgraw. In agreement with the documented findings as noted in the resident documentation with any exceptions or additions as noted here. Intermittent mild fuzziness episodes with rapid position change in hospital bed or transition to lavatory. No syncopal episodes reported. VS reviewed. On examination, S1/S2 nl RRR no MCG. CTAB. Abd NT/ND BS+ve. Bradycardia with intermittent syncope - cardiology consult - will need follow up for send out Lyme bands post discharge. Continue abx therapy for 2 wk course, can be adjusted to 3 wks based on clinical improvement. Ongoing outpatient cardiology evaluation for high vagal tone and recurrent syncope. DVT - continue Eliqiuis as noted, consider hypercoagulable evaluation based on no significant insult (though inactivity is a relavant concern based on sx and incarceration) Else see resident documentation as noted. Total attending time spent on this patient's case on the day of discharge: 35 minutes. Resident Activity Tracking Resident Involvement: Resident Care Provided Care Provided: Adult Hospital Medicine
[2021-08-18] MEDS ORDERED: DOXYCYCLINE HYCLATE 100 MG CAP PO SCH (09:00)
[2021-08-18] MEDS: FAMOTIDINE 20 MG TAB PO SCH (09:48)
[2021-08-18] MEDS: ASPIRIN 81 MG ECTAB PO SCH (09:49)
[2021-08-18] MEDS: APIXABAN 5 MG TABLET PO SCH (09:49)
[2021-08-18] MEDS: lisinopril 10 MG TAB PO SCH (09:50)
[2021-08-18] MEDS: ACETAMINOPHEN 325 MG TAB PO PRN (10:01)
[2021-08-19 13:36] LABS: 18KDIGG Band NON-REACTIVE; 23KDIGG Band NON-REACTIVE; 23KDIGM Band REACTIVE; 28KDIGG Band NON-REACTIVE; 30KDIGG Band NON-REACTIVE; 39KDIGG Band NON-REACTIVE; 39KDIGM Band NON-REACTIVE; 41KDIGG Band NON-REACTIVE; 41KDIGM Band NON-REACTIVE; 45KDIGG Band NON-REACTIVE; 58KDIGG Band NON-REACTIVE; 66KDIGG Band NON-REACTIVE; 93KDIGG Band NON-REACTIVE; Lyme Antibodies, WB IgG NEGATIVE (NEGATIVE); Lyme Antibodies, WB IgM NEGATIVE (NEGATIVE)
== END 2021-08-18 14:03 | DRG 868 ==
LOC: ED 12:21 → SUATTDRO 16:10 → 2S 16:10
DX: I82.452 Acute embolism and thrombosis of left peroneal vein; Z79.82 Long term (current) use of aspirin; E78.5 Hyperlipidemia, unspecified; I44.2 Atrioventricular block, complete; I44.7 Left bundle-branch block, unspecified; Z90.49 Acquired absence of other specified parts of digestive tract; Z87.891 Personal history of nicotine dependence; Z88.0 Allergy status to penicillin; N17.9 Acute kidney failure, unspecified; I10 Essential (primary) hypertension; A69.29 Other conditions associated with Lyme disease; I45.9 Conduction disorder, unspecified